=== PATIENT | female | born 1960 | race Caucasian/White ===

== ENCOUNTER 2019-12-11 15:56 | Outpatient (CLI) | payer BC, SELFPAY ==
--- NOTE | ~2019-12-11 | US_ITS ---
EXAMINATION: US carotid duplex BI DATE: 12/11/2019 16:34 INDICATION: Cervicalgia. TECHNIQUE: Grayscale, color Doppler, and pulsed Doppler images of the cervical carotid arteries were obtained. The degree of vessel stenosis is placed in one of the following categories: normal, <50%, 5 0-69%, >=70% but less than near-occlusion, near-occlusion, or total occlusion. Note that percent sten osis relative to normal distal artery lumen diameter is indirectly measured from velocity measurement s as described by Johny, et al. Radiology 2003; [id number]. COMPARISON: None. FINDINGS: RIGHT: The right common carotid artery (CCA) peak systolic velocity (PSV) is 108 cm/s. The right internal ca rotid artery (ICA) PSV is 101 cm/s. The right ICA end-diastolic velocity (EDV) is 42 cm/s. The right ICA/CCA PSV ratio is 0.9. Grayscale and color Doppler images demonstrate no evident stenosis or plaqu e in the ICA. The external carotid artery (ECA) PSV is 97 cm/s. There is antegrade flow in the right vertebral artery. LEFT: The left CCA PSV is 98 cm/s. The left ICA PSV is 95 cm/s. The left ICA EDV is 19 cm/s. The left ICA/C CA PSV ratio is 1.0. Grayscale and color Doppler images demonstrate no evident stenosis or plaque in the ICA. The ECA PSV is 79 cm/s. There is antegrade flow in the left vertebral artery. IMPRESSION: 1. No evident plaque or stenosis in the right internal carotid artery. 2. No evident plaque or stenosis in the left internal carotid artery. Reviewed, dictated and finalized at location A.
== END 2019-12-11 15:57 | disposition home or self-care (01) ==
PROVIDERS: PCP Nurse Practitioner Family; Visit Provider Nurse Practitioner Family
DX: M54.2 Cervicalgia (principal)
CPT/HCPCS: 93880

== ENCOUNTER 2020-11-12 08:02 | Emergency (ER) | payer BC, SELFPAY ==
[2020-11-12 08:04] VITALS: BP 132/78; PULSE 97; RESP 20; TEMP 36.5; O2SAT 99
--- NOTE | 2020-11-12 08:24 | ED.SKABFB ---
HPI - Skin/Abscess/Foreign Bdy General Chief complaint: Skin/Abscess/Foreign Body Stated complaint: L ABD PAIN Time Seen by Provider: 11/12/20 08:13 History of Present Illness HPI narrative: Rash to left flank for the past few days. Vesicular. Painful. Does not cross midline. She tried valacylovir,which she thought may have helped. Related Data Home Medications Medication Instructions Recorded Confirmed valacyclovir PRN 11/12/20 Allergies Allergy/AdvReac Type Severity Reaction Status Date / Time erythromycin base Allergy Unknown Unknown Verified 11/12/20 08:25 Macrolide Antibiotics Allergy Unknown Unknown Verified 11/12/20 08:27 Review of Systems Review of Systems: All systems reviewed & are unremarkable except as noted in HPI and below Constitutional: Constitutional: Denies chills and Denies fever(s) ENT: Reports system reviewed and no additional complaints, except as documented Cardiovascular: Cardiovascular: Denies chest pain Respiratory: Respiratory: Denies dyspnea Gastrointestinal: Gastrointestinal: Denies abdominal pain, Denies nausea and Denies vomiting Musculoskeletal: Musculoskeletal: Denies back pain Integumentary/Breasts: Skin/Breast: Reports rash Neurologic: Denies numbness and Denies weakness [facility] Social History Social History (Updated 11/12/20 @ 17:57 by Johny Ayala MD) Smoking status: Never smoker Gender identity (if verbalized by the patient): Female Exam Const: General: healthy appearing, no acute distress and alert Orientation/consciousness: patient oriented x3 HENMT: Head: normal to inspection Neck: Neck: normal visual inspection Chest: Other: dermatomal vesicular rash to the left flank. Resp: Effort & Inspection: normal respiratory effort Auscultation: clear to auscultation bilaterally, no rales, no rhonchi and no wheezes Cardio: Jugular venous distension: no JVD Rate: regular rate Rhythm: regular rhythm Heart sounds: no murmurs GI: GI Palp: Yes Soft to palpation and No Tenderness to palpation present (GI) Skin: General skin exam: normal color Neuro: General: patient oriented x3 and moves all extremities Speech: normal speech Extrem: General: no edema Psych: Appearance: well kempt Affect: normal affect Course Vital Signs Vital signs: Vital Signs Temperature 36.5 C 11/12/20 08:04 Pulse Rate 97 11/12/20 08:04 Respiratory Rate 20 11/12/20 08:04 Blood Pressure 132/78 11/12/20 08:04 Pulse Oximetry 99 11/12/20 08:04 Temperature 36.5 C 11/12/20 08:04 Pulse Rate 97 11/12/20 08:04 Respiratory Rate 20 11/12/20 08:04 Blood Pressure 132/78 11/12/20 08:04 Pulse Oximetry 99 11/12/20 08:04 MDM - Skin/Abscess/Foreign Bdy Differential Diagnosis Differential diagnosis: Likely herpes zoster Discharge Plan Discharge Clinical Impression: Herpes zoster Qualifiers: Herpes zoster complications: without complications Qualified Code(s): B02.9 - Zoster without complications Patient Disposition: Home, Self-Care Condition: Stable Instructions: Antibiotic Form, Shingles (ED) Prescriptions: New valacyclovir 1 gram tablet 1,000 mg PO TID 7 Days Qty: 21 RF: 0 prednisone 20 mg tablet 40 mg PO DAILY 7 Days Qty: 14 RF: 0 hydrocodone-acetaminophen 5-325 mg tablet 1 tablet PO Q6H PRN (Reason: pain) Qty: 10 RF: 0 No Action valacyclovir 500 mg tablet PRN (Reason: Rash) RF: 0 Follow-up/Referrals: Linda,Julieth Leon, [employer] [employer] [Primary Care Provider] -
[2020-11-12] MEDS: predniSONE 20 MG TABLET 40 MG PO (08:31)
[2020-11-12] MEDS: KETOROLAC (*BKC) 60 MG/2 ML VIAL IM (08:31)
[2020-11-12] MEDS: valACYclovir HCL 500 MG TABLET 1000 MG PO (08:52)
== END 2020-11-12 09:05 | disposition home or self-care (01) ==
LOC: ANHED 08:51
PROVIDERS: Emergency Provider Emergency Medicine; PCP Nurse Practitioner Family
DX: B02.9 Zoster without complications (principal)
CPT/HCPCS: 96372; 99283; A9270; J1885; J7512

== ENCOUNTER 2023-05-30 12:55 | Emergency (ER) | payer BC, SELFPAY ==
[2023-05-30] VITALS (8 sets, daily range): BP systolic 115–163; BP diastolic 80–99; PULSE 70–94; RESP 16–18; TEMP 36.4–36.8; O2SAT 98–100
--- NOTE | ~2023-05-30 | CT_ITS ---
EXAMINATION: CT abdomen pelvis w con DATE: 05/30/2023 15:36 INDICATION: Left lower quadrant abdominal pain and flank pain. TECHNIQUE: Computed tomography (CT) of the abdomen and pelvis was performed with 100 mL Omnipaque-350 intravenous contrast. Iterative reconstruction technique was employed. The dose-length product was 8 97.37 mGy-cm. COMPARISON: None FINDINGS: Mild atelectasis at the lingula and right middle lobe. 4-5 mm pleural-based nodule in the left lower lobe. Heart size is normal. No pericardial or pleural effusion. Calcified gallstones within the other briceño normal-appearing gallbladder. Liver, spleen, pancreas, bilateral adrenal glands and right kidney are normal. A few subcentimeter low-attenuation likely cysts at the upper pole of the left kidney. B owels including the appendix are normal with no obstruction. Bladder is normal. Uterus appears small which could relate either atrophy or subtotal hysterectomy. Right ovary is not visualized and could a lso be surgically absent. No free intraperitoneal gas or fluid. No pathologically enlarged abdominal or pelvic lymphadenopathy. Chronic T11 compression fracture with 20% anterior vertebral body height l oss. IMPRESSION: 1. No acute intra-abdominal/pelvic process. 2. Cholelithiasis. 3. 4.5 mm pleural-based left lower lobe nodule. If the patient is low risk for lung cancer, no follow -up is needed. If the patient is high risk (i.e., history of smoking or asbestos or significant radia tion exposure), optional follow-up chest CT could be considered at 12 months. Reviewed, dictated and finalized at location A. [employer] IMPRESSION: 1. No acute intra-abdominal/pelvic process. 2. Cholelithiasis. 3. 4.5 mm pleural-based left lower lobe nodule. If the patient is low risk for lung cancer, no follow-up is needed. If the patient is high risk (i.e., history of smoking or asbestos or significant radiation exposure), optional follow-up chest CT could be considered at 12 months.
--- NOTE | 2023-05-30 14:43 | ED.FEMALEGU ---
HPI - Female Genitourinary General Chief complaint: Urogenital-Female Stated complaint: L groin pain Time Seen by Provider: 05/30/23 13:25 History of Present Illness HPI Narrative: Patient is a 62-year-old female presenting with abdominal pain. States that she developed severe left lower quadrant pain earlier today. States that it was in her left flank and then moved to her left lower quadrant. States that it was coming and going and has now let up a little bit. She had a small bowel movement earlier today. No diarrhea. No nausea or vomiting. No dysuria or hematuria. No further complaints. Related Data Home Medications Medication Instructions Recorded Confirmed valacyclovir 500 mg tablet PRN Rash 11/12/20 Allergies Allergy/AdvReac Type Severity Reaction Status Date / Time erythromycin base Allergy Unknown Unknown Verified 11/12/20 08:25 Macrolide Antibiotics Allergy Unknown Unknown Verified 11/12/20 08:27 Review of Systems Review of Systems: All systems reviewed & are unremarkable except as noted in HPI and below PMFSH Social History Social History Smoking status: Never smoker Gender identity (if verbalized by the patient): Female Exam Narrative: GENERAL: Nontoxic, no acute distress HEAD: Normocephalic, atraumatic. EYES: PERRLA and EOMI. ENT: Grossly unremarkable NECK: Supple. CHEST: No respiratory distress. HEART: Regular rate and rhythm ABDOMEN: Soft, +LLQ tenderness w/o guarding or rebound; no CVA tenderness EXTREMITIES: Normal range of motion. No edema. SKIN: Warm, dry, no rash. NEURO: No focal deficits. Alert and oriented x3. PSYCH: Normal mood and affect. Course Vital Signs Vital signs: Vital Signs Temperature 98.0 F 05/30/23 13:03 Pulse Rate 94 05/30/23 13:03 Respiratory Rate 16 05/30/23 13:03 Blood Pressure 157/91 H 05/30/23 13:03 Pulse Oximetry 98 05/30/23 13:03 Oxygen Delivery Room Air 05/30/23 13:03 Temperature 98.0 F 05/30/23 17:29 Pulse Rate 74 05/30/23 17:29 Respiratory Rate 16 05/30/23 17:29 Blood Pressure 146/80 H 05/30/23 17:29 Pulse Oximetry 99 05/30/23 17:29 Oxygen Delivery Room Air 05/30/23 13:03 MDM - Female Genitourinary MDM Narrative Medical decision making narrative: 62-year-old female presenting with left lower quadrant pain. Vitals stable. Exam remarkable for the above. Blood work is unremarkable. UA with several rbc's but no wbc's. CT abdomen pelvis without acute abnormalities. There is evidence of cholelithiasis and a small left-sided lung nodule. On re-evaluation, patient states that the pain has significantly improved. I suspect that she passed a stone given the hematuria and flank pain. States the pain is improving. Rest of her workup is unremarkable. Feel she is safe for outpatient management. Tylenol and ibuprofen for pain control. Discussed aggressive hydration and close PCP follow-up. Appropriate return precautions given. Discharged in stable condition. Differential Diagnosis Differential diagnosis: Likely urinary tract infection and other (Ureterolithiasis, kidney stones, flank pain, diverticulitis) Medical Records Attestation: I reviewed the patient's medical records. Lab Data Attestation: I reviewed the patient's lab results. 05/30/23 15:00 05/30/23 15:00 Labs: Lab Results 05/30/23 05/30/23 Range/Units 15:00 15:52 WBC 9.5 (4.5-10.0) K/mm3 RBC 4.76 (4.2-5.4) M/mm3 Hgb 13.4 (12.0-15.0) g/dL Hct 42.9 (37.0-47.0) % MCV 90.1 (80-100) fl MCH 28.2 (26-34) pg MCHC 31.2 L (32-36) g/dl RDW 12.5 (11.5-14.5) % Plt Count 239 (150-375) k/mm3 MPV 11.1 H (7.4-10.4) fl Immature Gran % (Auto) 0.3 (0-0.5) % Neut % (Auto) 68.2 (45.5-73.1) % Lymph % (Auto) 18.4 (18.3-44.2) % Dubois % (Auto) 7.6 (2.6-8.5) % Eos % (Auto) 5.0 H (0-4.4) % Baso % (Auto) 0.5
[2023-05-30] MEDS: KETOROLAC 30 MG/ML VIAL (*BKC) IV PUSH (14:52)
[2023-05-30] MEDS: SODIUM CHLORIDE 0.9% IV 1,000 ML 999 ML IV CONT (14:52)
[2023-05-30 15:05] LABS: Basophils Absolute Auto 0.1 K/mm3 (0.0-0.1); Basophils Percent Auto 0.5 % (0.2-1.2); Eosinophils Absolute Auto 0.5 K/mm3 (0-0.3); Hematocrit 42.9 % (37.0-47.0); Hemoglobin 13.4 g/dL (12.0-15.0); Immature Granulocyte Absolute 0.03 K/mm3 (0.00-0.031); Immature Granulocyte Percent A 0.3 % (0-0.5); Lymphocytes Absolute Auto 1.74 K/mm3 (0.9-3.2); Lymphocytes Percent Auto 18.4 % (18.3-44.2); Mean Corpuscular HGB Conc 31.2 g/dl (32-36); Mean Corpuscular Hemoglobin 28.2 pg (26-34); Mean Corpuscular Volume 90.1 fl (80-100); Mean Platelet Volume 11.1 fl (7.4-10.4); Monocytes Absolute Auto 0.7 K/mm3 (0.1-0.6); Monocytes Percent Auto 7.6 % (2.6-8.5); Neutrophils Absolute Auto 6.5 K/mm3 (1.3-6.7); Neutrophils Percent Auto 68.2 % (45.5-73.1); Platelet Count Result 239 k/mm3 (150-375); Red Blood Count 4.76 M/mm3 (4.2-5.4); Red Cell Distribution Width 12.5 % (11.5-14.5); White Blood Count 9.5 K/mm3 (4.5-10.0)
[2023-05-30 15:16] LABS: Alanine Aminotransferase 17 U/L (6-35); Albumin Level 4.2 g/dL (3.5-5.1); Alkaline Phosphatase 82 U/L (38-126); Anion Gap 6 mmol/L (8-16); Aspartate Amino Transferase 22 U/L (14-36); Bilirubin,Total 0.6 mg/dL (0.2-1.3); Blood Urea Nitrogen 14 mg/dL (7-17); Calcium 9.5 mg/dL (8.4-10.2); Carbon Dioxide 27 mmol/L (22-30); Chloride 107 mmol/L (98-107); Estimated CRCL calculation 58 ml/min; Estimated Glomerular Filt Rate > 60; Glucose 100 mg/dL (65-110); Lipase 98 U/L (23-300); Potassium 3.9 mmol/L (3.4-5.0); Sodium 140 mmol/L (137-145)
[2023-05-30 16:04] LABS: Appearance Urine Cloudy (Clear); Bacteria Urine None Seen /hpf; Bilirubin Urine Negative (Negative); Blood Urine 3+ (Negative); Color Urine Yellow (Yellow); Glucose Urine UA Negative (Negative); Ketones Urine Trace mg/dL (Negative); Leukocyte Esterase Ur Negative LEU/UL (Negative); Nitrate Urine Negative (Negative); Protein Urine Negative (Negative); RBC Urine 21-50 /hpf (0-2); Squamous Epithelial Cell Urine Occasional /hpf (Few); WBC Urine 0-5 /hpf; pH Urine 5.5 (5.0-9.0)
[2023-05-30 16:12] LABS: Add Urine Microscopic? YES; Specific Grav Ur 1.043 (1.001-1.035)
== END 2023-05-30 17:29 | disposition home or self-care (01) ==
PROVIDERS: Emergency Provider Emergency Medicine
DX: R31.9 Hematuria, unspecified (principal); R10.32 Left lower quadrant pain
CPT/HCPCS: 36415; 74177; 80053; 81001; 83690; 85025; 96361; 96374; 99284; J1885; J7030; Q9967